=== PATIENT | male | born 1955 | race Caucasian/White ===

== ENCOUNTER 2019-01-18 20:32 | Observation (INO) | payer BC, MEDICAID ==
[~2019-01-18] VITALS: Ht 182.9 cm; Wt 81.8 kg
[~2019-01-18 20:32] MED LIST: ASPI-1265 PO; Lisinopril PO; METH4TAB3 PO
[2019-01-18 20:53] LABS: BASOPHILS % (AUTO) 0.6 % (0-1); EOSINOPHILS % (AUTO) 0.2 % (0-6); HEMATOCRIT 47.2 % (42.0-52.0); HEMOGLOBIN 16.5 g/dl (14.0-17.9); LYMPHOCYTES # (AUTO) 0.9 X10'3 (1.1-4.8); LYMPHOCYTES % (AUTO) 12.2 % (21-51); MEAN CORPUSCULAR HEMOGLOBIN 31.5 PG (27.0-31.0); MEAN PLATELET VOLUME 6.3 FL (7.4-10.4); MONOCYTES # (AUTO) 0.5 X10'3 (0-0.9); NEUTROPHILS # (AUTO) 6.2 X10'3 (1.8-7.7); PLATELET COUNT 335 X10'3 (140-440); RED BLOOD COUNT 5.24 X10'6 (4.70-6.10); RED CELL DISTRIBUTION WIDTH 13.1 % (11.5-14.5); WHITE BLOOD COUNT 7.7 X10'3 (4.5-11.0)
[2019-01-18 21:06] LABS: ALANINE AMINOTRANSFERASE 33 U/L (12-78); ALBUMIN 4.3 G/DL (3.4-5.0); ALBUMIN/GLOBULIN RATIO 1.1 (1.1-1.5); ALKALINE PHOSPHATASE 65 IU/L (46-116); ANION GAP 14 (8-16); ASPARTATE AMINO TRANSFERASE 24 U/L (10-37); BILIRUBIN,TOTAL 1.3 MG/DL (0.1-1.0); BLOOD UREA NITROGEN 6 MG/DL (7-18); BUN/CREATININE RATIO 5.6 (5.4-32.0); CALCIUM 9.1 MG/DL (8.5-10.1); CHLORIDE 92 MMOL/L (99-107); CREATININE 1.08 MG/DL (0.60-1.10); GLUCOSE 203 MG/DL (70-104); SODIUM 134 MMOL/L (135-145); TOTAL CARBON DIOXIDE 27.6 MMOL/L (24-32); TOTAL PROTEIN 8.2 G/DL (6.4-8.2); eGFR 70 ML/MIN
[2019-01-18 21:15] LABS: POTASSIUM 2.4 MMOL/L (3.5-5.1)
[2019-01-18 21:57] LABS: ETHANOL < 0.010 GM/DL (0.0-0.010); MAGNESIUM 1.5 MG/DL (1.5-2.4)
[2019-01-18] MEDS ORDERED: potassium 10mEq/100ml NS w/LIDOcaine (10mg/bag) IV ONE (22:20)
[2019-01-18] MEDS ORDERED: magnesium 2GM in 50ml NS 50 ML IV ONE (22:20)
[2019-01-18] MEDS ORDERED: normal saline 1000ML IV soln IVB ONE (22:20)
[2019-01-18] MEDS ORDERED: pantoprazole 40 MG vial IV ONE (22:20)
[2019-01-18] MEDS ORDERED: ondansetron/PF 4mg/2ml inj IV ONE (22:20)
[2019-01-18] MEDS ORDERED: potassium Cl 10 mEq/100mL bag IV ONE (22:20)
[2019-01-18] MEDS ORDERED: ESOMEPRAZOLE 40 MG VIAL IV ONE (22:25)
[2019-01-18] MEDS ORDERED: mag hydrox/Alum hydrox/simeth 30ml oral suspension PO PRN (22:50)
[2019-01-18] MEDS ORDERED: dextrose 50%-water 50ml dispensing syringe IV PRN (22:50)
[2019-01-18] MEDS ORDERED: magnesium hydroxide 30ml (MOM) UD suspension PO PRN (22:50)
[2019-01-18] MEDS ORDERED: ondansetron/PF 4mg/2ml inj IV PRN (22:50)
[2019-01-18] MEDS ORDERED: acetaminophen 325mg tablet PO PRN ×2 (22:50)
[2019-01-18] MEDS ORDERED: potassium CL 10mEq/100ml bag 100 ML IV PRN ×2 (22:50)
[2019-01-18] MEDS ORDERED: thiamine 100mg/ml 2ml inj. IV ONE (22:50)
[2019-01-18] MEDS ORDERED: morphine 2 MG/ML inj. syringe IV PRN ×2 (22:50)
[2019-01-18] MEDS ORDERED: LORazepam 2 mg/ml vial IV ONE (22:50)
[2019-01-18] MEDS ORDERED: LORazepam 1 MG tablet PO PRN (22:50)
[2019-01-18] MEDS ORDERED: HYDROcodone/acetaminophen 5mg/325mg tablet PO PRN (22:50)
[2019-01-18] MEDS ORDERED: potassium Cl 20 mEq SR tablet PO PRN (22:50)
[2019-01-18] MEDS ORDERED: haloperidol lactate 5mg/ml inj IM PRN (22:50)
[2019-01-18] MEDS ORDERED: haloperidol 5mg tablet PO PRN (22:50)
[2019-01-18] MEDS ORDERED: LORazepam 2 mg/ml vial IV PRN (22:50)
[2019-01-18 22:57] LABS: CLARITY,URINE CLEAR (Clear); COLOR,URINE YELLOW (Yellow); GLUCOSE, URINE 250 mg/dl (Neg); KETONES,URINE 40 mg/dl (Neg); LEUKOCYTE ESTERASE ,URINE NEGATIVE (Neg); NITRITES, URINE NEGATIVE (Neg); OCCULT BLOOD,URINE TRACE-INTACT (Neg); PH,URINE 7.5 (4.8-8.0); PROTEIN,URINE 30 mg/dl (Neg); UROBILINOGEN,URINE 0.2 E.U/dL (0.2-1.0)
[2019-01-18 23:04] LABS: UA COLLECTION TYPE CLN CATCH MIDSTREAM
[2019-01-18 23:06] LABS: BACTERIA,URINE NONE SEEN /HPF (Neg); MUCUS STRANDS NONE SEEN /LPF (Neg); RBC,URINE NONE SEEN /HPF (0-2); SQUAMOUS EPITHELIAL CELL,UR NONE SEEN /LPF (FEW); WBC,URINE NONE SEEN /HPF (0-4)
--- NOTE | 2019-01-18 23:08 | NUR ---
Patient requests that we share his information over the phone with his so she can go home to get rest. Code word MYLES for staff to speak with her.
[2019-01-18 23:09] LABS: URINE AMPHETAMINE SCREEN NEGATIVE (Neg); URINE BARBITUATE SCREEN NEGATIVE (Neg); URINE BENZODIAZEPINES SCREEN NEGATIVE (Neg); URINE CANNABINOID SCREEN POSITIVE (Neg); URINE COCAINE SCREEN NEGATIVE (Neg); URINE METHADONE SCREEN NEGATIVE (Neg); URINE OPIATE SCREEN NEGATIVE (Neg); URINE PHENCYCLIDINE SCREEN NEGATIVE (Neg)
--- NOTE | 2019-01-18 23:23 | NUR ---
Attempted to call report, spoke with Kenia SERVIN, was told that the receiving nurse is in a room with another patient and would call back as soon as they are done
[2019-01-19 00:15] VITALS: BP 142/93
[2019-01-19] MEDS: potassium Cl 20 mEq SR tablet PO PRN ×2 (00:47→07:43)
[2019-01-19 06:00] VITALS: BP 123/83
[2019-01-19 06:11] LABS: BASOPHILS % (AUTO) 0.5 % (0-1); EOSINOPHILS % (AUTO) 0.4 % (0-6); HEMATOCRIT 42.9 % (42.0-52.0); LYMPHOCYTES # (AUTO) 1.3 X10'3 (1.1-4.8); LYMPHOCYTES % (AUTO) 12.9 % (21-51); MEAN CORPUSCULAR HEMOGLOBIN 31.3 PG (27.0-31.0); MEAN CORPUSCULAR HGB CONC 34.9 g/dL (33.0-36.5); MEAN CORPUSCULAR VOLUME 89.6 FL (78-98); MEAN PLATELET VOLUME 6.5 FL (7.4-10.4); MONOCYTES # (AUTO) 0.7 X10'3 (0-0.9); MONOCYTES % (AUTO) 6.7 % (2-12); NEUTROPHILS # (AUTO) 8.1 X10'3 (1.8-7.7); NEUTROPHILS % (AUTO) 79.5 % (42-75); PLATELET COUNT 316 X10'3 (140-440); RED BLOOD COUNT 4.79 X10'6 (4.70-6.10); RED CELL DISTRIBUTION WIDTH 13.1 % (11.5-14.5); WHITE BLOOD COUNT 10.2 X10'3 (4.5-11.0)
[2019-01-19 06:18] LABS: ALBUMIN 3.6 G/DL (3.4-5.0); ANION GAP 7 (8-16); BLOOD UREA NITROGEN 6 MG/DL (7-18); CALCIUM 8.4 MG/DL (8.5-10.1); CHLORIDE 96 MMOL/L (99-107); CREATININE 0.86 MG/DL (0.60-1.10); GLUCOSE 92 MG/DL (70-104); SODIUM 136 MMOL/L (135-145); TOTAL CARBON DIOXIDE 33.4 MMOL/L (24-32); eGFR 90 ML/MIN
[2019-01-19 06:21] LABS: POTASSIUM 2.5 MMOL/L (3.5-5.1)
[2019-01-19] MEDS ORDERED: AMLO-94 PO (06:56)
[2019-01-19] MEDS ORDERED: CHLO25TA2 PO (06:56)
[2019-01-19] MEDS ORDERED: ASPI81TA52 PO (06:56)
[2019-01-19] MEDS ORDERED: METO-467 PO (06:56)
[2019-01-19] MEDS ORDERED: folic acid 1mg tablet PO SCH (08:00)
[2019-01-19] MEDS ORDERED: multivitamins, therapeutics tablet PO SCH (08:00)
[2019-01-19] MEDS ORDERED: thiamine 100mg tablet PO SCH (08:00)
[2019-01-19] MEDS ORDERED: K and/or MAG REPLACEMENT MC SCH (08:00)
[2019-01-19 10:00] VITALS: BP 115/77
--- NOTE | 2019-01-19 12:20 | NUR ---
Pt reported that he wanted to leave AMA. Spoke with pt about importance of low K level and replacement of lost potassium. This morning's lab result was 2.5. Pt states "I have Potassium at home." Informed pt he should contact his PCP to discuss potassium replacement prior to self ingestion of potassium for the benefit of just increasing his Potassium. Saline lock dc'd from [facility]. Pt's here at bedside. Pt signed AMA form. Pt left with and daughter at time of discharge.
== END 2019-01-19 12:23 | disposition left against medical advice (07) ==
LOC: ER 20:32 → ORTHO 4S 23:34 → CMPBEDREQ 23:42
PROVIDERS: ADMIT Internal Medicine; ATTEND Internal Medicine
DX: R56.9 Unspecified convulsions (principal); I48.91 Unspecified atrial fibrillation; I10 Essential (primary) hypertension; E87.6 Hypokalemia; R11.2 Nausea with vomiting, unspecified; Z98.890 Other specified postprocedural states
CPT/HCPCS: 36415; 70450; 80048; 80053; 80305; 80320; 81001; 82948; 83735; 85025; 87081; 93005; 96365; 96366; 96368; 96375; 99284; G0378; J2060; J2405; J3411; J3475; J3480

== ENCOUNTER 2019-05-09 20:57 | Emergency (ER) | payer BC ==
[~2019-05-09] VITALS: Ht 182.9 cm; Wt 86.4 kg
[~2019-05-09 20:57] MED LIST changes: +AMLO-94 PO; +ASPI81TA52 PO; +CHLO25TA2 PO; -METH4TAB3 PO; +METO-467 PO
[2019-05-09 22:03] LABS: BASOPHILS # (AUTO) 0.1 X10'3 (0-0.2); BASOPHILS % (AUTO) 0.8 % (0-1); EOSINOPHILS # (AUTO) 0.2 X10'3 (0-0.9); EOSINOPHILS % (AUTO) 3.6 % (0-6); HEMATOCRIT 43.2 % (42.0-52.0); HEMOGLOBIN 15.1 g/dl (14.0-17.9); LYMPHOCYTES # (AUTO) 1.2 X10'3 (1.1-4.8); LYMPHOCYTES % (AUTO) 17.6 % (21-51); MEAN CORPUSCULAR HEMOGLOBIN 31.6 PG (27.0-31.0); MEAN CORPUSCULAR HGB CONC 34.9 g/dL (33.0-36.5); MEAN CORPUSCULAR VOLUME 90.7 FL (78-98); MEAN PLATELET VOLUME 6.6 FL (7.4-10.4); MONOCYTES # (AUTO) 0.5 X10'3 (0-0.9); MONOCYTES % (AUTO) 7.3 % (2-12); NEUTROPHILS # (AUTO) 4.7 X10'3 (1.8-7.7); NEUTROPHILS % (AUTO) 70.7 % (42-75); PLATELET COUNT 317 X10'3 (140-440); RED BLOOD COUNT 4.76 X10'6 (4.70-6.10); WHITE BLOOD COUNT 6.7 X10'3 (4.5-11.0)
[2019-05-09 22:09] LABS: ALANINE AMINOTRANSFERASE 24 U/L (12-78); ALBUMIN 4.1 G/DL (3.4-5.0); ALBUMIN/GLOBULIN RATIO 1.1 (1.1-1.5); ALKALINE PHOSPHATASE 75 IU/L (46-116); ANION GAP 14 (8-16); ASPARTATE AMINO TRANSFERASE 21 U/L (10-37); BILIRUBIN,TOTAL 0.3 MG/DL (0.1-1.0); BLOOD UREA NITROGEN 11 MG/DL (7-18); BUN/CREATININE RATIO 16.4 (5.4-32.0); CALCIUM 8.8 MG/DL (8.5-10.1); CHLORIDE 99 MMOL/L (99-107); CREATININE 0.67 MG/DL (0.60-1.10); GLUCOSE 98 MG/DL (70-104); POTASSIUM 3.7 MMOL/L (3.5-5.1); SODIUM 138 MMOL/L (135-145); TOTAL CARBON DIOXIDE 25.2 MMOL/L (24-32); TOTAL PROTEIN 7.8 G/DL (6.4-8.2); eGFR > 90 ML/MIN
--- NOTE | 2019-05-09 22:45 | NUR ---
PT IN NAD, RESPIRATIONS REMAIN EVEN AND NON LABORED. PT DENIES SOB " LONG I'M SITTING UP RIGHT." WILL CONTINUE TO MONITOR.
[2019-05-09 23:03] LABS: D-DIMER < 0.19 MG/L FEU (0-0.50)
[2019-05-09 23:17] VITALS: BP 152/97
== END 2019-05-09 23:20 | disposition home or self-care (01) ==
LOC: ER 20:57
DX: R06.02 Shortness of breath (principal); R06.00 Dyspnea, unspecified; R05 Cough; I48.91 Unspecified atrial fibrillation; I10 Essential (primary) hypertension; F12.90 Cannabis use, unspecified, uncomplicated; Z79.82 Long term (current) use of aspirin; Z79.899 Other long term (current) drug therapy; Z98.890 Other specified postprocedural states
CPT/HCPCS: 36415; 71045; 80053; 83880; 84484; 85025; 85379; 93005; 99284